=== PATIENT | male | born 1930 | race Caucasian/White ===

== ENCOUNTER 2016-11-10 14:12 | Inpatient (IN) | payer MEDICARE ==
[2016-11-10] MEDS ORDERED: NORCO 5/325 MG PO PRN (17:28)
[2016-11-10] MEDS: Cordarone 200 MG PO SCH (18:16)
[2016-11-10] MEDS: Flomax 0.4 MG PO SCH (18:16)
[2016-11-10] MEDS: Proscar 5 MG PO SCH (18:16)
[2016-11-10] MEDS ORDERED: NON-FORMULARY ITEM (Simvastatin 40 Mg [Zocor 40 Mg] 40 MG) PO SCH (22:00)
[2016-11-10] MEDS: ZOCOR 20MG PO SCH (22:27)
[2016-11-11 06:00] LABS: Carbon Dioxide 33.8 mEq/L (21-32); Potassium 4.1 mEq/L (3.5-5.1)
[2016-11-11] MEDS: Lasix 40 MG PO SCH (09:38)
[2016-11-11] MEDS: Cordarone 200 MG PO SCH (09:38)
[2016-11-11] MEDS: Flomax 0.4 MG PO SCH (09:38)
[2016-11-11] MEDS: Pepcid 20 MG PO SCH (09:38)
[2016-11-11] MEDS: Proscar 5 MG PO SCH (09:38)
[2016-11-11] MEDS: ECOTRIN 81 MG PO SCH (09:38)
[2016-11-11] MEDS: Toprol-Xl 25MG Tablets PO SCH (09:38)
[2016-11-11] MEDS ORDERED: Aplisol ID SCH (10:00)
[2016-11-11 10:13] LABS: Mean Cell Volume 98.3 fl (78-100); Mean Corpuscular Hemoglobin 30.8 pg (26-32); Red Blood Count 3.47 M/mm3 (4.1-5.6)
[2016-11-11 10:14] LABS: Mean Platelet Volume 9.9 fl (6-9.5); Platelet Count 168 K/mm3 (150-450)
[2016-11-11 10:30] LABS: Eosinophil 2 % (0.00-3.0); Platelet Estimate NORMAL (NORMAL); Total Cells Counted 100
[2016-11-11] MEDS ORDERED: Nitrostat 0.4 MG Tablet SL ONE (12:10)
[2016-11-11] MEDS ORDERED: Sodium Chloride 0.9% 1000 ML 1,000 ML ONE (12:28)
[2016-11-11] MEDS ORDERED: Sodium Chloride 0.9% 1000 ML 1,000 ML IV STA (12:39)
[2016-11-11] MEDS ORDERED: Nitrostat 0.4 MG Tablet SL PRN (12:44)
[2016-11-11] MEDS: PLAVIX 75 MG Tablet PO SCH (16:19)
[2016-11-11] MEDS: ZOCOR 20MG PO SCH (21:44)
[2016-11-11] MEDS ORDERED: Ambien 10 MG PO PRN (23:38)
[2016-11-12 05:43] LABS: Platelet Count 172 K/mm3 (150-450); Red Blood Count 3.36 M/mm3 (4.1-5.6); Red Cell Distribution Width 15.5 % (11.5-14.0); White Blood Count 10.6 K/mm3 (4.0-10.5)
[2016-11-12 05:45] LABS: Mean Corpuscular Hemoglobin 30.6 pg (26-32)
[2016-11-12 06:01] LABS: Total Cells Counted 100
[2016-11-12 06:03] LABS: ANISOCYTOSIS 1+; Platelet Estimate NORMAL (NORMAL); Poikilocytosis 1+
[2016-11-12 06:05] LABS: ANION GAP 10.5 MEQ/L (5-15); Carbon Dioxide 32.1 mEq/L (21-32); Potassium 3.9 mEq/L (3.5-5.1)
[2016-11-12] MEDS: Toprol-Xl 25MG Tablets PO SCH (09:05)
[2016-11-12] MEDS: ECOTRIN 81 MG PO SCH (09:05)
[2016-11-12] MEDS: Flomax 0.4 MG PO SCH (09:05)
[2016-11-12] MEDS: Pepcid 20 MG PO SCH (09:05)
[2016-11-12] MEDS: Lasix 40 MG PO SCH (09:06)
[2016-11-12] MEDS: Proscar 5 MG PO SCH (09:06)
[2016-11-12] MEDS: Cordarone 200 MG PO SCH (09:06)
[2016-11-12] MEDS: PLAVIX 75 MG Tablet PO SCH (09:06)
--- NOTE | 2016-11-12 10:41 | HP ---
CHIEF COMPLAINT: Recent coronary artery bypass grafting and valve replacement for aortic stenosis. HISTORY OF PRESENT ILLNESS: The patient is an 86 year-old white male patient who had recently underwent bypass grafting as well as aortic valve replacement at [facility]. He was felt the need to have rehab and was sent to our facility for swing-bed placement for rehab for strengthening from cardiac view point. PAST MEDICAL/SURGICAL HISTORY: Otherwise significant for colon cancer. He has had an abdominoperineal resection years ago. He has a neurogenic bladder. The patient otherwise has done well. He also has issues with mild chronic renal failure. The patient straight caths from a neurogenic bladder standpoint and benign prostatic hypertrophy. MEDICATIONS: The patient's home medications include amiodarone, Boscobel, aspirin, Atorvastatin, bisacodyl, famotidine, melatonin, MiraLAX, potassium. ALLERGIES: NKDA. PHYSICAL EXAMINATION: Revealed a frail elderly white male patient currently in no distress. His vital signs showed his temperature to be 97.5F, pulse 74, respiratory rate 15, blood pressure 119/55. O2 saturation 95%. HEENT: Normocephalic, atraumatic. Pupils equal round reactive to light. Extraocular movements intact. Oropharynx is pink and moist. NECK: Supple without lymphadenopathy, thyromegaly or JVD. CHEST: Clear to auscultation with good air movement bilaterally. HEART: Regular rate and rhythm. There is median sternotomy which is healing. ABDOMEN: Soft. There is left lower quadrant colostomy present. EXTREMITIES: Without clubbing, cyanosis or edema. NEUROLOGIC: The patient is alert and oriented x3. ASSESSMENT: A patient with recent coronary artery bypass grafting in need of cardiac rehab. He has been admitted to swing-bed for the same. He will continue on his medications as above with the eventual plan of returning him home.
[2016-11-12] MEDS: TYLENOL 325 MG PO PRN ×2 (12:33→20:53)
[2016-11-12] MEDS: ZOCOR 20MG PO SCH (20:53)
[2016-11-13 05:47] LABS: Mean Cell Volume 96.4 fl (78-100); Mean Platelet Volume 10.4 fl (6-9.5); Platelet Count 186 K/mm3 (150-450); Red Blood Count 3.09 M/mm3 (4.1-5.6); Red Cell Distribution Width 15.5 % (11.5-14.0)
[2016-11-13 06:03] LABS: ANION GAP 8.8 MEQ/L (5-15); Potassium 3.7 mEq/L (3.5-5.1)
[2016-11-13 07:05] LABS: Platelet Estimate NORMAL (NORMAL); Total Cells Counted 100
[2016-11-13] MEDS: Proscar 5 MG PO SCH (09:30)
[2016-11-13] MEDS: ECOTRIN 81 MG PO SCH (09:30)
[2016-11-13] MEDS: Lasix 40 MG PO SCH (09:31)
[2016-11-13] MEDS: PLAVIX 75 MG Tablet PO SCH (09:31)
[2016-11-13] MEDS: Toprol-Xl 25MG Tablets PO SCH (09:31)
[2016-11-13] MEDS: Cordarone 200 MG PO SCH (09:31)
[2016-11-13] MEDS: Flomax 0.4 MG PO SCH (09:31)
[2016-11-13] MEDS: Pepcid 20 MG PO SCH (09:31)
[2016-11-13] MEDS ORDERED: Flonase NASAL NS PRN (13:30)
[2016-11-13] MEDS: Flonase NASAL NS PRN (14:55)
[2016-11-13] MEDS ORDERED: BENADRYL 25 MG CAPSULE PO PRN (18:13)
[2016-11-13] MEDS: ZOCOR 20MG PO SCH (22:52)
[2016-11-14 05:54] LABS: ANION GAP 8.8 MEQ/L (5-15); Carbon Dioxide 31.8 mEq/L (21-32); Potassium 3.7 mEq/L (3.5-5.1)
[2016-11-14 07:40] VITALS: BP 122/57; PULSE 75; O2SAT 94
[2016-11-14] MEDS: Flomax 0.4 MG PO SCH (10:05)
[2016-11-14] MEDS: Toprol-Xl 25MG Tablets PO SCH (10:05)
[2016-11-14] MEDS: Lasix 40 MG PO SCH (10:06)
[2016-11-14] MEDS: Cordarone 200 MG PO SCH (10:06)
[2016-11-14] MEDS: PLAVIX 75 MG Tablet PO SCH (10:07)
[2016-11-14] MEDS: Pepcid 20 MG PO SCH (10:07)
[2016-11-14] MEDS: Proscar 5 MG PO SCH (10:08)
[2016-11-14] MEDS: ECOTRIN 81 MG PO SCH (10:08)
[2016-11-14] MEDS: Flonase NASAL NS PRN (10:10)
--- NOTE | 2016-11-21 13:35 | DS ---
DISCHARGE FROM SWING BED: DISCHARGE DIAGNOSIS: 1. HISTORY OF CORONARY ARTERY BYPASS GRAFTING AND VALVE REPLACEMENT. 2. FALL WITH HEAD INJURY. BRIEF HISTORY: The patient is an 86 y/o WM patient who underwent valve replacement at an [facility]. He also had coronary artery bypass grafting performed. They felt that he would not be stable enough to take care of himself at home. Therefore, sent him to our facility for Swing Bed for rehab. The patient did remarkably well with ambulation. He did have an episode however of requesting medicine for sleep. He was given Ambien. Apparently, after that, got up and fell and hit his head. The evaluation of this revealed a slight laceration over the brow ridge, but otherwise, he seemed to be fine with no neurologic changes. With physical therapy, the patient showed remarkable ability to ambulate considering his age and the recent surgery. He was felt to be stable and ready for discharge home by the morning of 11/14/16 to follow-up in the office in 1 week and to follow-up with his cardiovascular surgeon in [place] as well.
[2016-11-22] MEDS ORDERED: Aplisol ID SCH (10:00)
== END 2016-11-14 15:50 | disposition home or self-care (01) | DRG 303 ==
LOC: MED SURG 15:46
PROVIDERS: ADMIT Family Medicine; ATTEND Family Medicine
DX: I25.810 Atherosclerosis of coronary artery bypass graft(s) without angina pectoris (principal); S01.81XA Laceration without foreign body of other part of head, initial encounter; W18.39XA Other fall on same level, initial encounter; Y93.89 Activity, other specified; Y92.230 Patient room in hospital as the place of occurrence of the external cause; Z95.2 Presence of prosthetic heart valve; Z95.1 Presence of aortocoronary bypass graft; Z85.038 Personal history of other malignant neoplasm of large intestine; N31.9 Neuromuscular dysfunction of bladder, unspecified; N18.2 Chronic kidney disease, stage 2 (mild); N40.0 Benign prostatic hyperplasia without lower urinary tract symptoms; Z79.899 Other long term (current) drug therapy; Z93.3 Colostomy status
CPT/HCPCS: 36415; 80048; 84484; 85025; 93005; 94760; A9270-GY